=== PATIENT | male | born 1985 | race Caucasian/White ===

== ENCOUNTER 2025-03-28 13:12 | Emergency (ER) | payer MEDICAID ==
[~2025-03-28] VITALS: Ht 170.2 cm; Wt 96.4 kg
--- NOTE | 2025-03-28 13:45 | RADIOLOGY REPORT ---
EXAM: DI FINGER(S) CLINICAL INDICATION: Finger Pain TECHNIQUE: DI FINGER(S) Comparison: None FINDINGS/IMPRESSION: There is no evidence of acute fracture or dislocation. The visualized joint space is well maintained. The alignment is anatomical. There is no radiopaque foreign body.
--- NOTE | 2025-03-28 14:54 | RADIOLOGY REPORT ---
CLINICAL INDICATION: right shoulder pain TECHNIQUE: 2 radiographic views of the right shoulder were obtained. Comparison: None FINDINGS/IMPRESSION: There is no evidence of acute fracture or dislocation. Chronic fracture deformity of the right distal clavicle The alignment is anatomical. There is no radiopaque foreign body.
[2025-03-28] MEDS: ibuprofen tablet 400 MG TABLET PO ONE (15:06)
--- NOTE | 2025-03-28 15:34 | RADIOLOGY REPORT ---
EXAM: XR Right Clavicle Complete, 2 or More Views CLINICAL INDICATION: right shoulder/clavicle pain TECHNIQUE: Frontal and lordotic views of the right clavicle. COMPARISON: None FINDINGS: BONES/JOINTS: Moderate degenerative changes of the acromioclavicular joint. No acute fracture. No dislocation. SOFT TISSUES: Soft tissue swelling. OTHER FINDINGS: . IMPRESSION: Moderate degenerative changes of the acromioclavicular joint. No acute fracture.
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
[2025-03-28] MEDS ORDERED: CYCL-1 PO (16:04)
[2025-03-28 16:14] VITALS: BP 130/70; PULSE 74; RESP 16; TEMP 98.8; O2SAT 98
== END 2025-03-28 16:17 | disposition home or self-care (01) ==
LOC: ER 13:13
DX: M79.641 Pain in right hand (principal); M79.644 Pain in right finger(s); Z88.0 Allergy status to penicillin; V43.52XA Car driver injured in collision with other type car in traffic accident, initial encounter; Y93.89 Activity, other specified; Y92.89 Other specified places as the place of occurrence of the external cause; Y99.8 Other external cause status
CPT/HCPCS: 73000; 73030; 73140; 99284